=== PATIENT | female | born 1965 | race Caucasian/White ===

== ENCOUNTER 2021-05-23 23:35 | Emergency (ER) | payer MEDICARE, MEDICAID, SELFPAY ==
[2021-05-23 23:36] VITALS: BP 136/74; PULSE 85; RESP 18; TEMP 36.1; O2SAT 97; BMI 34.3
--- NOTE | 2021-05-24 00:47 | ED.VIS.DENTA ---
HPI History of Present Illness Chief Complaint: Dental Narrative Narrative: 56-year-old female with history of partials and gingival infections presenting with pain in the left upper and lower gingival region. Patient states is been going on for about a day or so. Patient is from out of town is currently moving from to [place]. She is visiting [place] to see family. She states that she does believe that she is starting to have an infection again. She states that her gums are inflamed and she has pain when she puts in her partials. Denies any systemic signs or symptoms. She denies problems with swallowing or breathing. [facility] Medical History Back pain Cholecystectomy planned GERD (gastroesophageal reflux disease) Hyperlipemia Home Medications amoxicillin-pot clavulanate [Augmentin] 1 tab PO BID #20 tab 05/24/21 [Rx Last Taken Unknown] baclofen 10 mg PO QHS 05/24/21 [History Last Taken Unknown] cholecalciferol (vitamin D3) [Vitamin D3] 125 mcg PO DAILY 05/24/21 [History Last Taken Unknown] desvenlafaxine 50 mg PO DAILY 05/24/21 [History Last Taken Unknown] hydrocodone-acetaminophen [Clarion] 1 tab PO Q6H PRN 05/24/21 [History Last Taken Unknown] omeprazole 20 mg PO DAILY 05/24/21 [History Last Taken Unknown] trazodone 50 mg PO QHS 05/24/21 [History Last Taken Unknown] Allergy/AdvReac Type Severity Reaction Status Date / Time ibuprofen [From Motrin] Allergy Itching Verified 05/23/21 23:38 Surgical History Hx of breast reduction, elective Social History Smoking Status: Former smoker ROS ROS ED Constitutional Constitutional ED: Denies chills or fever(s) Eyes Eyes: Denies blurry vision or change in vision ENT ENT ED: Reports other Details: Gingival pain ; Denies ear pain, rhinorrhea or sore throat Cardiovascular Cardiovascular: Denies chest pain or palpitations Respiratory/Chest Respiratory/Chest: Denies cough or dyspnea Gastrointestinal Gastrointestinal: Denies abdominal pain, nausea or vomiting Genitourinary Genitourinary ED: Denies dysuria or hematuria Musculoskeletal Musculoskeletal: Denies arthralgias, myalgias or neck pain Integumentary Denies Abrasions or rash Neurologic Neurologic: Denies headache(s) or weakness EXAM Physical Exam Const Vital Signs: 05/23/21 23:36 Temperature 96.9 F L Temperature Source Temporal Pulse Rate 85 Respiratory Rate 18 Blood Pressure 136/74 H Blood Pressure Mean 94 Pulse Ox 97 Oxygen Delivery Method Room Air Positive well nourished General Appearance ED: NAD HEENT Teeth and Gingiva: gingiva abnormal Positive for gingival edema and gingival tenderness Eyes PERRL and EOMs intact bilaterally Neck no lymphadenopathy and supple Cardio regular rate and regular rhythm GI normal to inspection, nondistended, normoactive bowel sounds Neuro oriented x3 Sensorium / Orientation: alert Psych mental status grossly normal Skin no rashes or lesions noted MDM MDM MDM Narrative Medical decision making narrative: Patient's gingiva appear to be minimally inflamed where she takes off her partials. There is no percussion tooth tenderness. I do not appreciate any fluctuance. [place] mucosa is normal. Tongue is not swollen. No sublingual edema. Neck is supple without lymphadenopathy. Patient request antibiotics as she feels that she has had this symptom before that turned into infection in her gumline. Patient is given a prescription for Augmentin at her request given that she is out of town and does not have any close follow-up. She is given return precautions. Impression: 1. Oral pain Discharge Plan Triage Chief Complaint: Dental ED Provider: Faraz Herrera Dx/Rx/DC Orders Instructions: Your Mouth: Keeping It Healthy Prescriptions: New amoxicillin-pot clavulanate [Augmentin] 875-125 mg tablet 1 tab PO BID Qty: 20 RF: 0 No Action trazodone 50 mg Tablet 50 mg PO QHS RF: 0 hydrocodone-acetaminophen [Clarion] 10-325 mg Tablet 1 tab PO Q6H PRN (Reason: Pain) RF: 0 baclofen 10 mg Tablet 10 mg PO QHS RF: 0 omeprazole 20 mg Tablet,Delayed Release (Dr/Ec) 20 mg PO DAILY RF: 0 cholecalciferol (vitamin D3) [Vitamin D3] 125 mcg (5,000 unit) Tablet 125 mcg PO DAILY RF: 0 desvenlafaxine 50 mg Tablet Extended Release 24hr 50 mg PO DAILY RF: 0 Primary Care Provider: [facility] Doctor,Out of Referrals: [facility] Doctor,Out of [Primary Care Provider] - Disposition Disposition: Home, Self Care
[2021-05-24] MEDS: Amox/Clavulanate 875 MG Tablet PO (00:59)
[2021-05-24 01:04] VITALS: RESP 16
== END 2021-05-24 01:09 | disposition home or self-care (01) ==
LOC: ED 05-24 01:05
PROVIDERS: Emergency Provider Student in an Organized Health Care Education/Training Program
DX: K08.89 Other specified disorders of teeth and supporting structures (principal); K21.9 Gastro-esophageal reflux disease without esophagitis; Z79.899 Other long term (current) drug therapy; Z87.891 Personal history of nicotine dependence
CPT/HCPCS: 99283